=== PATIENT | female | born 1950 ===

== ENCOUNTER 2019-03-24 07:00 | Day surgery (SDC) | payer OTHER ==
[~2019-03-24] VITALS: Ht 157.5 cm; Wt 72.6 kg
[~2019-03-24 07:00] MED LIST: COZAAR100 MG PO; FENOFIBRATE160 MG PO; METFORMIN HCL850 MG PO; METOPROLOL PO; PROTONIX20 MG PO; SYNTHROID75 MCG PO
[2019-03-24] MEDS ORDERED: METOPROLOL SUCC50 MG PO (07:43)
== END 2019-03-24 13:00 | disposition home or self-care (01) ==
LOC: CIR.AMB 07:00 → SURH 10:00 → EDSTATUS 10:00 → SURH 13:00 → CIR.AMB 13:00 → O/R 20:40
DX: D05.12 Intraductal carcinoma in situ of left breast (principal); D24.1 Benign neoplasm of right breast